=== PATIENT | male | born 1975 | race Caucasian/White ===

== ENCOUNTER 2022-11-18 13:01 | Day surgery (SDC) | payer OTHER, SELFPAY ==
[2022-11-18] VITALS (11 sets, daily range): BP systolic 134–157; BP diastolic 76–100; PULSE 48–75; RESP 12–18; TEMP 36.2–36.9; O2SAT 95–98; BMI 32.7
--- NOTE | 2022-11-18 13:23 | CRLHL7_ITS ---
For Patients: As a result of the Century Cures Act, medical imaging exams and procedure reports are released immediately into your electronic medical record. You may view this report before your referring provider. If you have questions, please contact your health care provider. INDICATION: Incarcerated umbilical hernia. TECHNIQUE: CT abdomen and pelvis acquired with 132 mL Isovue 370 contrast. COMPARISON: None. FINDINGS: Lower chest: No focal consolidation. Liver: No suspicious focal hepatic lesion. Gallbladder and bile ducts: Unremarkable. Pancreas: Mild fatty atrophy. Spleen: Unremarkable. Adrenal glands: Unremarkable. Kidneys: Kidneys enhance symmetrically, without hydronephrosis. Retroperitoneum: No lymphadenopathy. Bowel and mesentery: Bowel is nonobstructed. Normal appendix. No significant ascites. 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 No pneumoperitoneum. Bladder: Unremarkable for degree of distension. Reproductive organs: Mild prostatomegaly. Pelvic lymph nodes: No lymphadenopathy. Vessels: Unremarkable. Abdominal wall: Fat filled umbilical hernia with a narrow neck, with inflammation of herniated mesenteric fat. No contained bowel/bowel obstruction. Small fat filled bilateral inguinal hernias. Bones: Extensive multilevel degenerative changes of the spine. IMPRESSION: 1. Fat filled umbilical hernia with narrow neck. No contained bowel/bowel obstruction. There is significant inflammation of the herniated mesenteric fat, suggesting vascular compromise. 2. 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 3. Mild prostatomegaly. Correlate with serum PSA. 4. Extensive multilevel degenerative changes of the spine. Please note that all CT scans at this facility use dose modulation, iterative reconstruction, and/or weight-based dosing when appropriate to reduce radiation dose to as low as reasonably achievable. Dictated by Randy Durán MD @ 11/18/2022 2:54:29 PM (Electronically Signed)
[2022-11-18 13:42] LABS: Basophils Absolute Auto 0.01 K/uL (0.00-0.30); Basophils Percent Auto 0.2 % (0.0-3.0); Eosinophils Absolute Auto 0.15 K/uL (0.00-0.50); Eosinophils Percent Auto 2.4 % (0.0-7.0); Hematocrit 49.5 % (37.0-53.0); Hemoglobin* 16.8 gm/dL (13.5-17.5); Immature Granulocytes Abs Auto 0.01 K/uL (0.00-0.30); Immature Granulocytes Pct Auto 0.2 %; Lymphocytes Absolute Auto 2.04 K/uL (0.90-2.90); Lymphocytes Percent Auto 32.6 % (20-44); Mean Corpuscular HGB Conc 34 gm/dL (32-36); Mean Corpuscular Hemoglobin 30 pg (26-34); Mean Corpuscular Volume 88 fL (80-100); Monocytes Percent Auto 8.1 % (0.0-11.0); Neutrophils Absolute Auto 3.54 K/uL (1.7-7.0); Neutrophils Percent Auto 56.5 % (42.0-72.0); Platelet Count* 213 K/uL (140-440); RDW Coefficient of Variation % 12.4 % (11.5-15.5); Red Blood Count 5.62 m/uL (4.30-5.90); White Blood Count* 6.26 K/uL (4.50-11.00)
[2022-11-18 13:44] LABS: Slide Review Reflex No
[2022-11-18 14:02] LABS: Chloride* 105 mmol/L (96-114)
[2022-11-18 14:03] LABS: Albumin* 4.4 g/dL (3.3-5.0); Potassium* 4.3 mmol/L (3.6-5.1); Sodium* 139 mmol/L (135-149)
[2022-11-18 14:05] LABS: Carbon Dioxide* 26 mmol/L (20-32); Creatinine* 1.3 mg/dL (0.5-1.5); Est. Creatinine Clearance* 84.39; Estimated Glomerular Filt Rate 67 ml/min
[2022-11-18 14:06] LABS: Alanine Aminotransferase* 69 U/L (4-50); Alkaline Phosphatase* 85 U/L (40-150); Aspartate Amino Transferase* 66 U/L (12-35); Bilirubin Direct* 0.1 mg/dL (0.0-0.5); Bilirubin Total* 0.9 mg/dL (0.1-1.5); Blood Urea Nitrogen* 19 mg/dL (5-24); Calcium* 9.4 mg/dL (8.4-10.6); Glucose* 94 mg/dL (60-115); Total Protein* 8.2 g/dL (6.0-8.3)
[2022-11-18 14:09] LABS: C Reactive Protein* 0.7 mg/dL (0.5-1.0)
[2022-11-18 14:24] LABS: Erythrocyte SedimentationRate* 5 mm/hr (2-15)
--- NOTE | 2022-11-18 14:57 | ED.GENADULT ---
HPI - General Adult General Chief complaint: Abdominal Pain Stated complaint: Umbilical hernia Time Seen by Provider: 11/18/22 13:08 Source: patient Mode of arrival: ambulatory Limitations: no limitations History of Present Illness HPI narrative: [age] year male coming in today complaining of abdominal pain going on for about a week. Patient does have a history of an umbilical hernia this never bother him before but that is where his pain is located. States that in the last 24 hours so the pain is gotten worse and the area is quite tender. He states that he had a cup of coffee this morning and some toast but that it ?did not go down well. He has not eaten since. He feels that he has not passed any gas since yesterday, did have a bowel movement yesterday. He feels nauseated, no vomiting. Denies any fevers. Past medical history significant for epilepsy, patient is on Keppra. Past surgical history significant for an ACL repair. Related Data Home Medications Medication Instructions Recorded Confirmed levetiracetam 500 mg 0 mg PO 11/18/22 11/18/22 tablet,extended release 24 hr Allergies Allergy/AdvReac Type Severity Reaction Status Date / Time No Known Drug Allergies Allergy Verified 11/18/22 12:17 Review of Systems Status of ROS: Reports: 10 or more systems reviewed and unremarkable except as noted in History and below Exam Narrative: Exam Narrative: Well-nourished well-developed patient in no acute distress. Alert and oriented. Answers questions appropriately. Mood and affect are appropriate. Thoughts are goal oriented and rational. No tangential or magical thinking noted. Patient speaks in full sentences without needing to catch their breath. HEENT: Normocephalic atraumatic. Pupils are equally round reactive to light. Extraocular muscles are intact. Conjunctivae are moist without any icterus noted. Moist mucous membranes. Posterior pharynx is normal. Neck is soft without any lymphadenopathy or thyromegaly. No masses are appreciated. Cardiovascular: Heart is regular rate and rhythm S1 and S2 are present without any murmurs. Lungs: Clear to auscultation bilaterally no wheezes rhonchi or rales are appreciated. Patient takes deep breaths without any discomfort. Abdomen: Soft and nondistended. He does have hypoactive bowel sounds. He has a protuberant small umbilical hernia that cannot be reduced. The area is quite tender to palpation. Extremities: Bilateral lower extremities are without edema. Skin: Well perfused without any obvious rashes. Const: Vital Signs, click to edit/add: Vital Signs - 24 hr 11/18/22 13:11 Temperature 97.2 F L Pulse Rate [Right Pulse Oximeter] 51 L Respiratory Rate 18 Blood Pressure [Ri ght Upper Arm] 139/97 H Pulse Oximetry 97 Oxygen Delivery Me thod Room Air Course Course Hospital Course: Lab work was unremarkable. CT scan showing a fat filled umbilical hernia without bowel, vascular compromise suggested. Did consult with Dr. Elizabeth, general surgery - surgical management recommended. Vital Signs Vital signs: Initial Vital Signs Temperature 97.2 F L 11/18/22 13:11 Temperature Source Temporal Artery Scan 11/18/22 13:11 Pulse Rate 51 L 11/18/22 13:11 Respiratory Rate 18 11/18/22 13:11 Blood Pressure 139/97 H 11/18/22 13:11 Blood Pressure Mean 111 11/18/22 13:11 Blood Pressure Position Sitting 11/18/22 13:11 Pulse Oximetry 97 11/18/22 13:11 Oxygen Delivery Method 11/18/22 13:11 Vital Signs Temperature 97.2 F L 11/18/22 13:11 Pulse Rate 51 L 11/18/22 13:11 Respiratory Rate 18 11/18/22 13:11 Blood Pressure 139/97 H 11/18/22 13:11 Pulse Oximetry 97 11/18/22 13:11 Oxygen Delivery Method 11/18/22 13:11 Temperature 97.2 F L 11/18/22 13:11 Pulse Rate 51 L 11/18/22 13:11 Respiratory Rate 18 11/18/22 13:11 Blood Pressure 139/97 H 11/18/22 13:11 Pulse Oximetry 97 11/18/22 13:11 Oxygen Delivery Method 11/18/22 13:11 Medical Decision Making MDM Narrative Medical decision making narrative: 47-year-old male with an umbilical hernia containing mesenteric fat and vascular compromise. Patient will be taken to the OR for further management. Lab Data Lab results reviewed: Yes I reviewed the patient's lab results Labs: Lab Results 11/18/22 11/18/22 11/18/22 Range/Units 13:34 13:34 13:34 WBC 6.26 (4.50-11.00) K/uL RBC 5.62 (4.30-5.90) m/uL Hgb 16.8 (13.5-17.5) gm/dL Hct 49.5 (37.0-53.0) % MCV 88 (80-100) fL MCH 30 (26-34) pg MCHC 34 (32-36) gm/dL RDW Coeff of Darren 12.4 (11.5-15.5) % Plt Count 213 (140-440) K/uL Neut % (Auto) 56.5 (42.0-72.0) % Lymph % (Auto) 32.6 (20-44) % [place] % (Auto) 8.1 (0.0-11.0) % Eos % (Auto) 2.4 (0.0-7.0) % Baso % (Auto) 0.2 (0.0-3.0) % Neut # (Auto) 3.54 (1.7-7.0) K/uL Lymph # (Auto) 2.04 (0.90-2.90) K/uL [place] # (Auto) 0.50 (0.00-0.90) K/UL Eos # (Auto) 0.15 (0.00-0.50) K/uL Baso # (Auto) 0.01 (0.00-0.30) K/uL ESR 5 (2-15) mm/hr Sodium 139 (135-149) mmol/L Potassium 4.3 (3.6-5.1) mmol/L Chloride 105 (96-114) mmol/L Carbon Dioxide 26 (20-32) mmol/L BUN 19 (5-24) mg/dL Creatinine 1.3 (0.5-1.5) mg/dL Estimated Creat Clear 84.39 Estimated GFR 67 ml/min Glucose 94 (60-115) mg/dL Calcium 9.4 (8.4-10.6) mg/dL Total Bilirubin 0.9 (0.1-1.5) mg/dL Direct Bilirubin 0.1 (0.0-0.5) mg/dL AST 66 H (12-35) U/L ALT 69 H (4-50) U/L Alkaline Phosphatase 85 (40-150) U/L C-Reactive Protein 0.7 (0.5-1.0) mg/dL Total Protein 8.2 (6.0-8.3) g/dL Albumin 4.4 (3.3-5.0) g/dL Imaging Data CT scan - abdomen: Attestation: I have reviewed the pertinent imaging results. Radiologist's impression: CT abdomen and pelvis acquired with 132 mL Isovue 370 contrast. COMPARISON: None. FINDINGS: Lower chest: No focal consolidation. Liver: No suspicious focal hepatic lesion. Gallbladder and bile ducts: Unremarkable. Pancreas: Mild fatty atrophy. Spleen: Unremarkable. Adrenal glands: Unremarkable. Kidneys: Kidneys enhance symmetrically, without hydronephrosis. Retroperitoneum: No lymphadenopathy. Bowel and mesentery: Bowel is nonobstructed. Normal appendix. No significant ascites. 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 No pneumoperitoneum. Bladder: Unremarkable for degree of distension. Reproductive organs: Mild prostatomegaly. Pelvic lymph nodes: No lymphadenopathy. Vessels: Unremarkable. Abdominal wall: Fat filled umbilical hernia with a narrow neck, with inflammation of herniated mesenteric fat. No contained bowel/bowel obstruction. Small fat filled bilateral inguinal hernias. Bones: Extensive multilevel degenerative changes of the spine. IMPRESSION: 1. Fat filled umbilical hernia with narrow neck. No contained bowel/bowel obstruction. There is significant inflammation of the herniated mesenteric fat, suggesting vascular compromise. 2. 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 3. Mild prostatomegaly. Correlate with serum PSA. 4. Extensive multilevel degenerative changes of the spine. Discharge Plan Discharge Clinical Impression: Hernia, umbilical Patient Disposition: XFER to OR Condition: Stable Prescriptions: No Action levetiracetam 500 mg tablet extended release 24 hr 0 mg PO Follow Up/Referrals: Provider,Not a Local [Primary Care Provider] -
[2022-11-18 16:15] LABS: SARS PCR* Negative SARS-CoV-2 (Negative)
--- NOTE | 2022-11-18 16:35 | PM.GSHP ---
History of Present Illness History of Present Illness Date Seen: 11/18/22 Chief complaint: Umbilical hernia Narrative: Kamlesh Mead is a 47 year old male presented to emergency room with increasing pain at the umbilical bulge. Patient states that couple days ago he noticed a bulge at his umbilicus. It was painful and sensitive to touch. Movement increased the pain. Because the pain was not going away and was increasingly more sensitive, he went to Urgent Care today and was referred to the emergency room. He denies any nausea or vomiting. He was not passing gas today. His last bowel movement was yesterday. He ate a little bit of food in the morning but did not feel hungry. I reviewed patient's workup. In the emergency room his CBC and BMP were normal. An abdominal CT was obtained that showed an incarcerated hernia containing fat. This was thought to be mesenteric fat with no dilated small bowel and no bowel compromise. Review of Systems Narrative: General: no fevers HENT: no problems swallowing CV: no shortness of breath Resp: no cough GI: See above Skin: no new rashes Musculoskeletal: no back pain Neuro: no muscle weakness Psyche: no depression, no anxiety Meds Home Medications and Allergies Home Medications Medication Instructions Recorded Confirmed Type levetiracetam 500 mg 0 mg PO 11/18/22 11/18/22 History tablet,extended release 24 hr Allergies Allergy/AdvReac Type Severity Reaction Status Date / Time No Known Drug Allergies Allergy Verified 11/18/22 12:17 Exam Narrative: Exam Narrative: General appearance: Alert, cooperative, and in no distress Pulmonary: Chest symmetric, lungs clear bilaterally Cardiovascular Heart: Regular rate and rhythm, S1, S2, no murmurs/rubs/gallops Gastrointestinal Abdominal: soft, not distended, there is a golf ball sized umbilical bulge that is not reducible. The skin overlying the bulge appears hyperemic. There is some tenderness to palpation to the right of this umbilical bulge but no peritoneal signs. Skin: Normal skin color, texture, and turgor. No rashes or lesions. Psychiatric: Alert, cooperative, normal affect. Const: Vital Signs, click to edit/add: Vital Signs - 24 hr 11/18/22 13:11 Temperature 97.2 F L Pulse Rate [Right Pulse Oximeter] 51 L Respiratory Rate 18 Blood Pressure [Ri ght Upper Arm] 139/97 H Pulse Oximetry 97 Oxygen Delivery Me thod Room Air Assessment and Plan Assessment and plan (1) Hernia, umbilical: Status: Acute Plan 47-year-old male presents to emergency room with incarcerated umbilical hernia most likely containing mesenteric fat or omentum. I discussed with the patient his laboratory and imaging findings. Patient has a very small fascial defect with a large bulge containing fat. The hernia is not reducible and may have mesenteric fat incarcerated in the hernia. Since patient is anorexic in did not pass any gas today, I recommended to proceed with an open umbilical hernia repair. The procedure was discussed in detail. The risks associated procedure including infection, bleeding, injury to intra-abdominal organs, possible small-bowel resection, and possible mesh placement, as well as recurrence of umbilical hernia were all discussed with the patient, and patient agreed to proceed.
[2022-11-18] MEDS: LACTATED RINGERS 1000 ML 1,000 ML 125 ML IV (16:37)
[2022-11-18] MEDS: CEFAZOLIN 2 GM INJ IVP (16:45)
[2022-11-18] MEDS: BUPIVACAINE 0.25% 30 ML INJECTION (17:45)
[2022-11-18] MEDS: MEPERIDINE 25 MG/ML INJ 12.5 MG IVP (18:05)
--- NOTE | 2022-11-18 18:07 | W.ANESCHARGE ---
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
--- NOTE | 2022-11-18 18:08 | P.GSOP_ITS ---
Operative Note Date of procedure: 11/18/22 Pre-op diagnosis: 1. Incarcerated umbilical hernia. Post-op diagnosis: 1. Incarcerated umbilical hernia containing omentum. Type of Procedure: 1. Open umbilical hernia repair without mesh. Indications: 47-year-old male presented to emergency room with persistent umbilical bulge that was painful. Patient initially noticed the bulge about 2 days ago but the pain was getting persistently more bothersome. He complained of pain and sensitivity when something was touching his umbilicus. He also noticed redness around the umbilicus. He did not pass any gas today but denied any nausea or vomiting. He had anorexia. On clinical exam he was found to have an incarcerated umbilical hernia with hyperemia overlying the umbilicus. Patient's WBC was normal. An abdominal CT was obtained that showed an incarcerated umbilical hernia containing fat that was thought to be mesenteric fat with possible vascular compromise. The small bowel was normal in caliber with no evidence of small-bowel obstruction. Given patient's clinical exam and his CT findings, an open umbilical hernia repair was recommended. The procedure was discussed in detail. The risks associated procedure including infection, bleeding, injury to intra-abdominal organs, and hernia recurrence were all discussed with the patient, and he agreed to proceed. Procedure Description: After discussing the risks and benefits of the procedure, the patient signed informed consent.? The operative site was marked and the patient was brought to the operating room and placed on the operating table in supine position.? Care was taken to pad the patient's pressure points.?? The patient was then intubated by anesthesia.?? The operative site was then prepped and draped in the usual sterile fashion.? A time-out was then performed. A curvilinear incision was made just below the umbilicus carefully to avoid inj ury to the underlying umbilical bulge. Subcutaneous fat was divided with cautery. The umbilical hernia sac was mobilized off the subcutaneous fat bluntly and with cautery. The incarcerated hernia was approximately golf ball sized but the fascial defect was felt to be very small. The anterior fascia was then incised just to the left and inferior of the incarcerated bulge with cautery. The hernia sac was examined closely and omentum was thought to be under the peritoneum. The hernia sac was then entered with Metzenbaum scissors. Small amount of clear fluid was suctioned out. Omentum was noticed in the hernia sac. The hernia sac was then examined inside and omental adhesions were noted to the inside of the hernia sac. Those were taken down with cautery. I was not able to reduce the omentum into the abdomen. A small necrotic nodule in the center of the omentum was also noted. I elected to excise this small omental segment in order to reduce the omentum into the abdomen. This small segment of the omentum was then clamped with right angle clamps, omentum was excised with cautery, and hemostasis was achieved with Vicryl ties. The excised part of the omentum was sent to pathology. The tied omentum was then reduced into the abdomen. The hernia sac was then excised with cautery. The hernia sac was then closed with a running 2-0 Vicryl suture. Preperitoneal space was de veloped with cautery. The fascial defect was approximately 1 cm with strong surrounding fascia. I elected to close this with 0-0 Nurolon sutures without mesh placement. The hernia defect was then closed with interrupted 0-0 Nurolon sutures. Local anesthetic was injected in the surgical site. The surgical field was irrigated with normal saline. Hemostasis was achieved with cautery. The umbilicus was then sutured to the underlying fascia with interrupted 3-0 Vicryl sutures. Dermis was then reapproximated with interrupted 3-0 sutures. The skin was closed with a running 4-0 Monocryl stitch. Sterile dressings were placed over the incision. ? ? The patient was then woken and transported to the recovery area in stable condition. ? The patient tolerated the procedure well. Anesthesia: GETA Surgeon: Brooklyn Garcia MD Estimated blood loss (mL): 10 Additional Specimen Information: 1. Omentum incarcerated in the hernia sac. Condition: stable Disposition: PACU
[2022-11-18] MEDS: LACTATED RINGERS 1000 ML 1,000 ML 35 ML IV (18:29)
[2022-11-18] MEDS: LACTATED RINGERS 1000 ML 1,000 ML 100 ML IV (18:54)
[2022-11-18] MEDS: HYDROCODONE-ACETAMIN 5-325 MG 1 TAB PO (19:54)
--- NOTE | 2022-11-18 22:14 | PC.NURSE ---
Discharge instructions, medications, and education reviewed with patient and spouse. Questions answered. Denies N/V. Pain controlled with PRN [place]. Electrician escorted patient out in a wheel chair accompanied by spouse.
== END 2022-11-18 21:00 | disposition home or self-care (01) ==
LOC: ED 16:02 → SS 16:14 → MEDSURG 18:33
PROVIDERS: Emergency Provider Family Medicine; Visit Provider Surgery
PROC: (CPT 49592; principal; 2022-11-18 16:30)
DX: K42.0 Umbilical hernia with obstruction, without gangrene (principal); R10.9 Unspecified abdominal pain
CPT/HCPCS: 49592; 00830; 36415; 74177; 80048; 80076; 85025; 85651; 86140; 87635; 88307; 99140; 99284; 99285; A9270; J0330; J0690; J1885; J2175; J2250; J2405; J2704; J2710; J3010; J3490; J7120; Q9967

== ENCOUNTER 2023-08-01 09:56 | Outpatient (CLI) | payer OTHER, SELFPAY | END 2023-08-01 09:57 | disposition home or self-care (01) | PROVIDERS: Visit Provider Family Medicine | DX: Z00.00 Encounter for general adult medical examination without abnormal findings (principal); R68.82 Decreased libido; Z13.6 Encounter for screening for cardiovascular disorders; Z12.5 Encounter for screening for malignant neoplasm of prostate | CPT/HCPCS: 80053; 80061; 84153; 84270; 84402; 84403 ==

== ENCOUNTER 2023-09-12 06:53 | Outpatient (CLI) | payer OTHER, SELFPAY ==
--- OUTSIDE RECORDS SUMMARY | 2023-09-12 06:56 | XMS_ITS | Referral Summary ---
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[facility]) Obesity (BMI 30-39.9) Resolved Problems Problem Noted Date Diagnosed Date Resolved Date Myoclonic epilepsy 12/06/2012 8 Obesity 12/06/2012 06/27/2018 CARDIOVASCULAR SCREENING; LD L GOAL LESS THAN 160 07/04/2010 06/27/2018 Knee pain 03/16/2009 06/15/2009 ACL tear 03/16/2009 06/15/2009 S/P ACL reconstruction 03/16/200906/15 Immunizations Name Administration Dates Next Due Influenza Vaccine >6 months,quad, PF 06/27/2018 TDAP Vaccine (Adacel) 12/07/2012 Social History Tobacco Use Types Packs/Day Years Used Date Smoking Tobacco: Never Smokeless Tobacco: Never Alcohol Use Standard Drinks/Week Comments Yes 0 (1 standard drink = 0.6 oz pur e alcohol) 1-2 beers/week PHQ-2 Answer Date Recorded PHQ-2 Score 0 06/27/2018 Adolescent Education Answer Date Record ed Getting School Help Needed Not on file 06/11 Sex and Gender Information Value Date Recorded Sex Assigned at Not on file Gender Identity Not on file Sexual Orientation Not on file Last Filed Vital Signs Vital Sign Reading Time Taken Comments Blood Pressure 136/84 06/27/2018 9:32 AM CDT Pulse 54 06/27/2018 9:32 AM CDT Temperature 36.8 ??C (98.2 ??F) 06/27/2018 9:32 AM CD T Respiratory Rate 18 06/27/2018 9:32 AM CDT Oxygen Saturation 96% 06/27/2018 9:32 AM CDT Inhaled Oxygen Concentration - - Weight 123.9 kg (273 lb 3.2 oz) 06/27/2018 9:32 AM CDT Height 190.5 cm (6' 3) 06/27/2018 9:32 AM CDT Body Mass Index 34.15 06/27/2018 9:32 AM CDT Plan of Treatment Not on file Care Teams Coupon And Bond Collection Clerk Relationship Specialty Start Date End Date Debbie Fraser MD [address] [place] [id number] PCP - General Internal Medicine 06/27/18
--- OUTSIDE RECORDS SUMMARY | 2023-09-12 06:56 | XMS_ITS | Clinical Summary ---
Author Name Unknown Organization [facility] Address [address] [place] [address] Care Team Providers Care Maint Mechanic Name Role Phone Doctor, No Primary Care Provider Unavailabl e Clinic, No Primary Unavailable Unavailable Allergies No known active allergies Medications Medication Sig Dispensed Refills Start Date End Date Status levETIRAcetam (KEPPRA XR) 500 mg oral extended release tablet 24 HR TAKE 2 TABLETS (1,000 MG) BY MOUTH ONCE DAILY 180 tablet 4 08/30/2023 Active levETIRAcetam (KEPPRA XR) 500 mg oral extended release tablet 24 HR TAKE 2 TABLETS (1,000 MG) BY MOUTH ONCE DAILY FOR 90 DAYS. 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 therapy 7 Other generalized epilepsy a nd epileptic syndromes, not intractable, without status epilepticus 04/07/2016 Generalized idiopathic epile psy and epileptic syndromes, not intractable, without status epilepticus 03/25/2013 Social History Tobacco Use Types Packs/Day Years Used Date Smoking Tobacco: Never Assessed Sex and Gender Information Value Date Recorded Sex Assigned at Not on file Gender Identity Not on file Sexual Orientation Not on file Plan of Treatment Health Maintenance Due Date Last Done Comments Colonoscopy 1973 Hepatitis C Screening 1973 Lipid Screening 1973 Anxiety Screening (JEAN-2) 1974 Depression Assessment (PHQ-2) 1974 Adult Tetanus Booster 12/07/2022 12/07/2012 COVID-19 Vaccine (4 - 2022-2 4 season) 2023 07/12/2021, 12/14/2020, 11/16/2020 Influenza Vaccine (#1) 2023 , 06/27/2018 Yearly Review of HCD 2023 Zoster Vaccine (1 of 2) 2023 Pneumococcal <65 Aged Out No longer e ligible based on patient's age to complete this topic Insurance Payer Benefit Plan / Group Subscriber ID Effect adamaris Dates Phone Address Type [employer] [facility]PLA[facility] [id number] 07/05/2021-Pres ent [address] [place] [phone] PPO Care Teams Maint Mechanic Relationship Specialty Start Date End Date Doctor, No No ad PCP - General Radiology 08/04/22 Clinic, No Primary PCP - Primary Care Clinic 08/04/22
--- OUTSIDE RECORDS SUMMARY | 2023-09-12 06:56 | XMS_ITS | Clinical Summary ---
Author Name Unknown Organization [facility] Address [facility] [place] [address] Care Team Providers Care Sap Portal Architect Name Role Phone Debbie Fraser MD Primary Care Provider + [phone] Allergies No known active allergies Medications Medication Sig Dispensed Refills Start Date End Date Status levETIRAcetam (KEPPRA XR) 500 MG 24 hr tablet TAKE 2 TABLETS BY MOUTH ONCE A DAY (AT BEDTIME) FOR 90 DAYS 3 04/22/2018 Active Active Problems Problem Noted Date Diagnosed Date Juvenile myoclonic epilepsy Overview: started at age 11; followed by neurology ([facility]) Obesity (BMI 30-39.9) Resolved Problems Problem Noted Date Diagnosed Date Resolved Date Myoclonic epilepsy 12/06/2012 8 Obesity 12/06/2012 06/27/2018 CARDIOVASCULAR SCREENING; LD L GOAL LESS THAN 160 07/04/2010 06/27/2018 Knee pain 03/16/2009 06/15/2009 ACL tear 03/16/2009 06/15/2009 S/P ACL reconstruction 03/16/200906/15 Immunizations Name Administration Dates Next Due Influenza Vaccine >6 months,quad, PF 06/27/2018 TDAP Vaccine (Adacel) 12/07/2012 Family History Medical History Relation Comments Neurologic Disorder Brother twin brother also with juvenile myoclonic epilepsy Leukemia Cousin childhood Pancreatic Cancer Paternal Grandmother Cerebrovascular Disease No family hx of Colon Cancer No family hx of Coronary Artery Disease Early Onset No family hx of Diabetes No family hx of Myocardial Infarction No family hx of Prostate Cancer No family hx of Relation Status Comments Brother Cousin Paternal Grandmother Social History Tobacco Use Types Packs/Day Years [...] 06/27/2018 9:32 AM CDT Plan of Treatment Health Maintenance Due Date Last Done Comments ADVANCE CARE PLANNING 1973 ANNUAL REVIEW OF HM ORDERS 1973 CT COLONOGRAPHY 1973 FIT 1973 FLEX SIG 1973 HEPATITIS B IMMUNIZATION (1 of 3 - 3-dose series) 1973 sDNA (Cologuard) 1973 COVID-19 Vaccine (#1) 1973 COLONOSCOPY 1983 COLORECTAL CANCER SCREENING 1983 HEPATITIS C SCREENING 1991 YEARLY PREVENTIVE VISIT 06/27/2019 06/27/2018 PHQ-2 (once per calendar year) 2022 06/27/2018 DTAP/TDAP/TD IMMUNIZATION (2 - Td or Tdap) 12/07/2022 12/07/2012 INFLUENZA VACCINE (#1) 2023 , 06/27/2018, 06/10/2014 ZOSTER IMMUNIZATION (1 of 2) 2023 LIPID 06/27/2023 06/27/2018, 02/23/2009 HIV SCREENING Completed 06/27/2018 HPV IMMUNIZATION Aged Out No longer e ligible based on patient's age to complete this topic IPV IMMUNIZATION Aged Out No longer e ligible based on patient's age to complete this topic MENINGITIS IMMUNIZATION Aged Out No l onger eligible based on patient's age to complete this topic Pneumococcal Vaccine: Pediatrics (0 to 5 Years) and At-Risk Patients (6 to 64 Years) Aged Out No longer eligible b ased on patient's age to complete this topic RSV MONOCLONAL ANTIBODY Aged Out No l onger eligible based on patient's age to complete this topic Care Teams Sap Portal Architect Relationship Specialty Start Date End Date Debbie Fraser MD [address] [place] [id number] PCP - General Internal Medicine 06/27/18
--- OUTSIDE RECORDS SUMMARY | 2023-09-12 06:56 | XMS_ITS | Referral Summary ---
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 [place] [phone] PPO Care Teams Channel Account Manager Relationship Specialty Start Date End Date Doctor, No No ad PCP - General Radiology 08/04/22 Clinic, No Primary PCP - [facility] 08/04/22
--- NOTE | 2023-09-12 08:20 | W.ANESCHARGE ---
Anesthesia Charges Start Date/Time Anesthesia Start Date: 09/12/23 Anesthesia Start Time: 07:52 Stop Date/Time Anesthesia Stop Date: 09/12/23 Anesthesia Stop Time: 08:15
--- NOTE | 2023-09-12 08:27 | W.ANESCHARGE ---
Anesthesia Charges Start Date/Time Anesthesia Start Date: 09/12/23 Anesthesia Start Time: 07:52 Stop Date/Time Anesthesia Stop Date: 09/12/23 Anesthesia Stop Time: 08:15
== END 2023-09-12 06:54 | disposition home or self-care (01) ==
LOC: OP CLINIC 06:54
PROVIDERS: PCP Family Medicine; Visit Provider Internal Medicine
DX: Z12.11 Encounter for screening for malignant neoplasm of colon (principal)
CPT/HCPCS: 00811; 00812; 45378; J2704